=== PATIENT | female | born 1985 | race Caucasian/White ===

== ENCOUNTER 2020-02-20 13:50 | Outpatient (CLI) | payer OTHER, SELFPAY ==
--- NOTE | ~2020-02-20 | US_ITS ---
EXAMINATION: US thyroid DATE: 02/20/2020 14:36 INDICATION: Thyroid nodule. TECHNIQUE: Multiple ultrasound images of the thyroid were obtained. COMPARISON: Thyroid scintigraphy 10/03/2018 FINDINGS: The right thyroid lobe measures 4.2 x 1.3 x 1.6 cm. The left thyroid lobe measures 3.4 x 1.4 x 1.2 c m. In the right thyroid lobe, there is an 8 mm solid, hypoechoic, [id number] nodule with nubia h margin with punctate echogenic foci (TI-RADS TR5). There is a 3 mm nodule in right thyroid lobe. IMPRESSION: 1. Small thyroid nodules. Thyroid ultrasound is recommended in one year. Reviewed, dictated and finalized at location B.
== END 2020-02-20 13:51 | disposition home or self-care (01) ==
LOC: ANHIMG 13:59
PROVIDERS: PCP Family Medicine; Visit Provider Advanced Practice Midwife
DX: E04.1 Nontoxic single thyroid nodule (principal)
CPT/HCPCS: 76536

== ENCOUNTER 2020-06-12 06:09 | Emergency (ER) | payer OTHER, SELFPAY ==
[2020-06-12] VITALS (15 sets, daily range): BP systolic 91–118; BP diastolic 55–79; PULSE 56–90; RESP 10–27; TEMP 36.5; O2SAT 98–100
--- NOTE | ~2020-06-12 | CT_ITS ---
EXAMINATION: CT abdomen pelvis w con EXAM DATE: 06/12/2020 07:52 INDICATION: Diffuse abdominal pain. TECHNIQUE: Spiral CT of the abdomen and pelvis was performed following intravenous injection of 100 m L Omnipaque 350. Axial, coronal and sagittal images were reviewed. The dose-length product (DLP) fo r this examination was 167.87 mGy-cm. The exposure was tailored according to patient size (auto mA e xposure control), and iterative reconstruction (ASIR) was used as additional dose reduction technique . Comparison is made to prior examination from 10/16/2013. FINDINGS: The left hemicolon is collapsed with prominent appearing wall, possible colitis. The liver , spleen, adrenal glands and pancreas are unremarkable. Gallbladder is unremarkable. No biliary obs truction. Portal and splenic veins are patent. Kidneys enhance symmetrically. There is no hydronep hrosis. The uterus is not identified and has likely been surgically resected. The bladder is unre markable. There is no retroperitoneal or pelvic lymphadenopathy. The appendix is normal. The stomach and small bowel are unremarkable. No free intraperitoneal ga s. The heart is normal in size. There are no pericardial or pleural effusions. The lung bases are unremarkable. The bones are unremarkable. IMPRESSION: 1. Possible left hemicolonic colitis. Reviewed, dictated and finalized at location A. ER SHUCKER
[2020-06-12 06:44] LABS: Basophils Percent Auto 0.4 % (0.2-1.2); Eosinophils Absolute Auto 0.2 K/mm3 (0-0.3); Eosinophils Percent Auto 1.7 % (0-4.4); Hematocrit 42.7 % (37.0-47.0); Hemoglobin 14.2 g/dL (12.0-15.0); Immature Granulocyte Absolute 0.02 K/mm3 (0.00-0.031); Immature Granulocyte Percent A 0.2 % (0-0.5); Lymphocytes Absolute Auto 2.12 K/mm3 (0.9-3.2); Lymphocytes Percent Auto 21.1 % (18.3-44.2); Mean Corpuscular HGB Conc 33.3 g/dl (32-36); Mean Corpuscular Hemoglobin 31.3 pg (26-34); Mean Corpuscular Volume 94.3 fl (80-100); Mean Platelet Volume 10.7 fl (7.4-10.4); Monocytes Absolute Auto 0.7 K/mm3 (0.1-0.6); Monocytes Percent Auto 6.7 % (2.6-8.5); Neutrophils Absolute Auto 7.1 K/mm3 (1.3-6.7); Neutrophils Percent Auto 69.9 % (45.5-73.1); Platelet Count Result 242 k/mm3 (150-375); Red Blood Count 4.53 M/mm3 (4.2-5.4); Red Cell Distribution Width 12.3 % (11.5-14.5); White Blood Count 10.1 K/mm3 (4.5-10.0)
[2020-06-12] MEDS: ONDANSETRON INJ 4 MG/2 ML VIAL IV PUSH (06:44)
[2020-06-12 06:57] LABS: Alanine Aminotransferase 19 U/L (4-35); Albumin Level 4.8 g/dL (3.5-5.1); Alkaline Phosphatase 74 U/L (38-126); Anion Gap 10 mmol/L (8-16); Aspartate Amino Transferase 29 U/L (14-36); Bilirubin,Total 0.9 mg/dL (0.2-1.3); Blood Urea Nitrogen 13 mg/dL (7-17); Carbon Dioxide 27 mmol/L (22-30); Chloride 103 mmol/L (98-107); Estimated CRCL calculation 59 ml/min; Estimated Glomerular Filt Rate > 60; Glucose 92 mg/dL (65-105); Potassium 3.9 mmol/L (3.4-5.0); Sodium 140 mmol/L (137-145)
[2020-06-12] MEDS: SODIUM CHLORIDE 0.9% IV 1,000 ML 999 ML IV CONT (06:59)
[2020-06-12] MEDS: MORPHINE SULFATE (*CRX) 2 MG/ML INJ IV PUSH (07:35)
--- NOTE | 2020-06-12 07:44 | ED.GENADULT ---
HPI - General Adult General Chief complaint: Abdominal Pain Stated complaint: Pooping Blood Time Seen by Provider: 06/12/20 06:59 History of Present Illness HPI narrative: Patient is a 34-year-old female who presents ER with abdominal cramping and diarrhea. Symptoms began last night. She has had frequent loose stools in the last few hours. Prior to arriving in the ER she had one stool that had some blood in it. It was mixed in with the stool. It did not change the color of the water in the toilet bowl. She continues to have cramping of the abdomen. No fevers or chills or sweats. 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 Originally thought she was having food poisoning. Related Data Home Medications Medication Instructions Recorded Confirmed cetirizine 10 mg tablet 10 mg PO DAILY 04/16/20 estradiol 2 mg tablet 2 mg PO DAILY 04/16/20 propranolol 10 mg tablet 10 mg PO Q12H 04/16/20 sumatriptan succinate 25 mg PO DAILY 06/12/20 06/12/20 Allergies Allergy/AdvReac Type Severity Reaction Status Date / Time Penicillins Allergy Unknown HIVES, N&V Verified 06/12/20 06:15 Review of Systems Review of Systems: All systems reviewed & are unremarkable except as noted in HPI and below Constitutional: Constitutional: Denies chills and Denies fever(s) ENT: Denies nasal congestion and Denies sore throat Respiratory: Respiratory: Denies cough and Denies dyspnea Gastrointestinal: Gastrointestinal: Reports abdominal pain, Reports diarrhea, Reports nausea and Denies vomiting PMFSH Social History Social History (Updated 04/16/20 @ 13:15 by Danelle Gavin) Smoking status: Current every day smoker Tobacco type: cigarettes Second hand tobacco smoke exposure: Yes Exam Narrative: Exam Narrative: GENERAL: Well-appearing, well-nourished, and in no acute distress. HEAD: Normocephalic, atraumatic. ENT: Mucous membranes moist. CHEST: Clear to auscultation. No respiratory distress. HEART: Regular rate and rhythm. Normal peripheral pulses. ABDOMEN: Soft, mild diffuse tenderness without guarding, nondistended. EXTREMITIES: Normal range of motion. No edema. NEURO: Alert and oriented x3. PSYCH: Normal mood and affect. Course Course Emergency Course: Patient informed of results. Will give work note and supportive therapy for home as well as Cipro/Flagyl. Vital Signs Vital signs: Vital Signs Temperature 97.7 F 06/12/20 06:12 Pulse Rate 86 06/12/20 06:12 Respiratory Rate 15 06/12/20 06:12 Blood Pressure 118/55 L 06/12/20 06:12 Pulse Oximetry 98 06/12/20 06:12 Temperature 97.7 F 06/12/20 06:12 Pulse Rate 76 06/12/20 08:25 Respiratory Rate 11 L 06/12/20 08:25 Blood Pressure 106/73 06/12/20 08:25 Pulse Oximetry 100 06/12/20 08:25 Medical Decision Making Vital Signs Vital Signs: Vital Signs Temperature 97.7 F 06/12/20 06:12 Pulse Rate 86 06/12/20 06:12 Respiratory Rate 15 06/12/20 06:12 Blood Pressure 118/55 L 06/12/20 06:12 Pulse Oximetry 98 06/12/20 06:12 Temperature 97.7 F 06/12/20 06:12 Pulse Rate 76 06/12/20 08:25 Respiratory Rate 11 L 06/12/20 08:25 Blood Pressure 106/73 06/12/20 08:25 Pulse Oximetry 100 06/12/20 08:25 Lab Data Result diagrams: 06/12/20 06:34 06/12/20 06:34 Labs: Lab Results 06/12/20 06/12/20 06/12/20 Range/Units 06:34 06:34 06:34 WBC 10.1 H (4.5-10.0) K/mm3 RBC 4.53 (4.2-5.4) M/mm3 Hgb 14.2 (12.0-15.0) g/dL Hct 42.7 (37.0-47.0) % MCV 94.3 (80-100) fl MCH 31.3 (26-34) pg MCHC 33.3 (32-36) g/dl RDW 12.3 (11.5-14.5) % Plt Count 242 (150-375) k/mm3 MPV 10.7 H (7.4-10.4) fl Immature Gran % (Auto) 0.2 (0-0.5) % Neut % (Auto) 69.9 (45.5-73.1) % Lymph % (Auto) 21.1 (18.3-44.2) % Jerome % (Auto) 6.7 (2.6-8.5) % Eos % (Auto) 1.7 (0-4.4) % Baso %
[2020-06-12 07:45] LABS: Add Urine Microscopic? NO; Appearance Urine Clear (Clear); Bacteria Urine Trace /hpf; Bilirubin Urine Negative (Negative); Blood Urine Negative (Negative); Color Urine Straw (Yellow); Glucose Urine UA Negative (Negative); Ketones Urine Negative (Negative); Leukocyte Esterase Ur Negative LEU/UL (Negative); Mucus Urine Rare /lpf; Nitrate Urine Negative (Negative); Protein Urine Negative (Negative); RBC Urine 0-2 /hpf (0-2); Specific Grav Ur 1.011 (1.001-1.035); Squamous Epithelial Cell Urine Occasional /hpf (Few); Urobilinogen Urine Negative mg/dL (<2.0); WBC Urine 0-3 /hpf
[2020-06-12 08:09] LABS: Lipase 75 U/L (23-300)
== END 2020-06-12 10:40 | disposition home or self-care (01) ==
PROVIDERS: Emergency Medicine; Emergency Provider Emergency Medicine; PCP Family Medicine
DX: K52.9 Noninfective gastroenteritis and colitis, unspecified (principal); F17.210 Nicotine dependence, cigarettes, uncomplicated
CPT/HCPCS: 36415; 74177; 80053; 81003; 83690; 85025; 96361; 96374; 96375; 99284; J2270; J2405; J7030; Q9967

== ENCOUNTER 2020-06-17 12:43 | Outpatient (CLI) | payer OTHER, SELFPAY ==
--- NOTE | ~2020-06-17 | CT_ITS ---
EXAMINATION: CT brain wo con DATE: 06/17/2020 13:15 INDICATION: Migraine headache. TECHNIQUE: Computed tomography (CT) of the head was performed without intravenous contrast. The mA wa s adjusted according to patient size. Iterative reconstruction technique was employed. The dose-lengt h product was 605.33 mGy-cm. COMPARISON: None FINDINGS: There is no intracranial hemorrhage, acute infarction, or abnormal intracranial mass lesion . The ventricles are normal in size. The orbits are normal. The paranasal sinuses are clear. The mast oid air cells are normal. IMPRESSION: 1. Normal brain. Reviewed, dictated and finalized at location B. CASER IMPRESSION: 1. Normal brain.
== END 2020-06-17 12:44 | disposition home or self-care (01) ==
PROVIDERS: PCP Family Medicine; Visit Provider Nurse Practitioner
DX: G43.909 Migraine, unspecified, not intractable, without status migrainosus (principal)
CPT/HCPCS: 70450

== ENCOUNTER 2021-05-04 09:36 | Outpatient (CLI) | payer OTHER, SELFPAY ==
--- NOTE | ~2021-05-04 | NM_ITS ---
EXAMINATION: NM thyroid scan w uptake DATE: 05/05/2021 11:19 INDICATION: Thyrotoxicosis, unspecified without thyrotoxic crisis. COMPARISON: Thyroid scintigraphy 10/03/2018, thyroid ultrasound 02/20/2020 TECHNIQUE: 0.450 mCi I-123 was administered orally. Scintigraphic images of the thyroid gland were o btained at 24 hours. Thyroid uptake was calculated by the technologist. FINDINGS: The thyroid uptake is 23% (normal 10-30%), with the right lobe measuring 13% uptake and the left 10%. There is no focal area of decreased or increased activity to suggest hypofunctioning or hyperfunctio jo nodule. IMPRESSION: 1. Normal thyroid scintigraphy and 24-hour iodine uptake. Reviewed, dictated and finalized at location A.
== END 2021-05-04 09:37 | disposition home or self-care (01) ==
LOC: ANHIMG 09:40
PROVIDERS: PCP Family Medicine; Visit Provider Internal Medicine Endocrinology, Diabetes & Metabolism
DX: E05.90 Thyrotoxicosis, unspecified without thyrotoxic crisis or storm (principal)
CPT/HCPCS: 78014; A9516

== ENCOUNTER 2022-03-17 16:47 | Outpatient (CLI) | payer BC, MEDICAID, SELFPAY ==
--- NOTE | ~2022-03-17 | US_ITS ---
EXAMINATION: US thyroid DATE: 03/17/2022 17:27 INDICATION: Nontoxic single thyroid nodule. TECHNIQUE: Multiple ultrasound images of the thyroid were obtained. COMPARISON: Ultrasound 02/20/2020 FINDINGS: The right thyroid lobe measures 4.2 x 1.6 x 1.7 cm. The left thyroid lobe measures 3.5 x 1.5 x 1.2 c m. In the right thyroid lobe, there is a 9 mm solid, hypoechoic, wider than tall nodule with smooth margin and punctate echogenic focus (TI-RADS TR5). IMPRESSION: 1. Stable small thyroid nodule. Thyroid ultrasound is recommended in one year. Reviewed, dictated and finalized at location A.
== END 2022-03-17 16:48 | disposition home or self-care (01) ==
PROVIDERS: PCP Family Medicine; Visit Provider Nurse Practitioner Adult Health
DX: E05.90 Thyrotoxicosis, unspecified without thyrotoxic crisis or storm (principal); E04.1 Nontoxic single thyroid nodule
CPT/HCPCS: 76536

== ENCOUNTER 2022-09-08 08:03 | Outpatient (CLI) | payer BC, MEDICAID, SELFPAY ==
--- NOTE | ~2022-09-08 | XR_ITS ---
Right Knee Technique: AP, lateral, and oblique views were obtained. Clinical History: Pain Findings: No fracture or dislocation is seen. Osseous alignment is anatomic. Joint spaces are preserv ed without degenerative or erosive change. Soft tissues are unremarkable. No joint effusion is seen. Impression: Unremarkable right knee radiographs. Reviewed, dictated and finalized at [facility]. ER MACHINE OPERATOR Impression: Unremarkable right knee radiographs.
== END 2022-09-08 08:04 | disposition home or self-care (01) ==
PROVIDERS: PCP Family Medicine; Visit Provider Nurse Practitioner Adult Health
DX: M25.561 Pain in right knee (principal); M25.461 Effusion, right knee
CPT/HCPCS: 73564

== ENCOUNTER 2024-03-02 00:08 | Day surgery (SDC) | payer BC, MEDICAID, SELFPAY ==
[2024-02-13 15:49] VITALS: BMI 53.6
[2024-03-02 10:39] VITALS: BP 116/80; PULSE 82; RESP 16; TEMP 36.4; O2SAT 100; BMI 23.2
[2024-03-02] MEDS: LACTATED RINGERS 1,000 ML 150 ML IV CONT (10:53)
--- NOTE | 2024-03-02 11:04 | WPDANESEPPF ---
Anes - Initial Pre Proc Eval Procedure: Operation Date: 03/02/24 11:30 Proposed Procedures p Esophagogastroduodenoscopy & Colonoscopy - Adria Fulton MD Date/Time: 03/02/24 11:04 Surgeon: Adria Fulton MD Pre Op Diagnosis: Noninfective gastroenteritis and colitis unspecifi Patient Data Age: 38 Gender: F Height: 1.57 m Weight: 57.7 kg Last Vital Signs Temp 97.6 F 03/02/24 10:39 Pulse 82 03/02/24 10:39 Resp 16 03/02/24 10:39 BP 116/80 03/02/24 10:39 Pulse Ox 100 03/02/24 10:39 O2 Del Method Room Air 03/02/24 10:39 Allergies Allergy/AdvReac Type Severity Reaction Status Date / Time Penicillins Allergy Unknown HIVES, N&V Verified 03/02/24 10:45 doxycycline Allergy Unconscious Verified 03/02/24 10:45 Home Medications Medication Instructions Recorded Confirmed Type cetirizine 10 mg tablet (Zyrtec) 10 mg PO DAILY 04/16/20 03/02/24 History Patient hx anesthesia problems: none Family hx anesthesia problems: none Results Review: All pre-operative results and documents have been reviewed as part of the pre-operative evaluation. [facility] Past Medical History Medical History Anxiety Headache, migraine Hepatitis A Thyroid Nodule Family History Family History (Updated 04/08/21 @ 15:06 by Maxine Garcia) Other Depression Social History Social History Smoking packs per day: 1 Smoking cigarettes per day: 20.0 Years smoked: 25 Smoking pack-years: 25.00 Smoking status: Current every day smoker Tobacco type: cigarettes and e-cigarettes/vaping Second hand tobacco smoke exposure: Yes Additional smoking assessment comments: smokes e-cigarettes now, started in 2021. Smoked a pack a day before for 25 Alcohol intake: never Substance use: current Substance use type: marijuana and methamphetamine Other substance usage details: current marijuana, former meth user (quit 10 years ago) Last use: 02/13/2024 Living arrangements: with family Spiritual care concerns: No Anes - Eval Final PreProcedure Day of Procedure 03/02/24 11:04 Patient weight: normal Heart: regular rate and rhythm Lungs: clear to auscultation Airway: Mallampati scale and special considerations (Missing teeth on the top aspect. ) Neurological: alert and oriented Last oral intake: >/= 8 hours ASA classification: II Emergent: no Anesthetic plan: proceed Anesthesia type and monitoring: general GIVS and standard monitoring Results Review: All pre-operative results and documents have been reviewed as part of the pre-operative evaluation. Palpitations/anxiety, Ex smoker quit 2020, currently vapes daily this am at approx 9 am. Informed Consent: The patient's anesthetic plan and its attendant risks and benefits were discussed with the patient/family/POA. Questions were solicited and answers provided to the satisfaction of the patient/family/POA.
--- NOTE | 2024-03-02 11:07 | PM.HPGS ---
History of Present Illness History of Present Illness Consent: Risks, benefits, and alternatives have been discussed and questions answered. Patient agrees to proceed with procedure. Chief complaint: Noninfective gastroenteritis and colitis unspecifi Narrative: Lina Bear is a 38 year old female here for egd and colonoscopy, last time about 8 years ago. She has intermittent loose stools, abdomina cramping and nausea, she was told that had colitis , also noted oily stools Review of Systems Review of Systems: All systems reviewed & are unremarkable except as noted in HPI and below PMFSH Past Medical History Medical History (Updated 03/02/24 @ 11:08 by Adria Fulton MD) Anxiety Headache, migraine Hepatitis A Loose stools Nausea Thyroid Nodule Family History Family History (Updated 04/08/21 @ 15:06 by Maxine Garcia) Other Depression Social History Social History Smoking packs per day: 1 Smoking cigarettes per day: 20.0 Years smoked: 25 Smoking pack-years: 25.00 Smoking status: Current every day smoker Tobacco type: cigarettes and e-cigarettes/vaping Second hand tobacco smoke exposure: Yes Additional smoking assessment comments: smokes e-cigarettes now, started in 2021. Smoked a pack a day before for 25 Alcohol intake: never Substance use: current Substance use type: marijuana and methamphetamine Other substance usage details: current marijuana, former meth user (quit 10 years ago) Last use: 02/13/2024 Living arrangements: with family Spiritual care concerns: No Meds Home Medications and Allergies Home Medications Medication Instructions Recorded Confirmed Type cetirizine 10 mg tablet (Zyrtec) 10 mg PO DAILY 04/16/20 03/02/24 History Allergies Allergy/AdvReac Type Severity Reaction Status Date / Time Penicillins Allergy Unknown HIVES, N&V Verified 03/02/24 10:45 doxycycline Allergy Unconscious Verified 03/02/24 10:45 Vital Signs Vital Signs - 24 hr 03/02/24 10:39 Temperature 97.6 F Pulse Rate 82 Respiratory Rate 16 Blood Pressure 116/80 Pulse Oximetry 100 Oxygen Delivery Room Air Exam Const: General: comfortable and no acute distress HENMT: Face/Nose/Sinus: Normal nares present Eyes: General: appearance normal, both eyes and all related structures Neck: Neck: no JVD Resp: Auscultation: clear to auscultation bilaterally Cardio: Rate: regular rate Rhythm: regular rhythm GI: Inspection: non-distended GI Palp: Yes Soft to palpation Skin: General skin exam: normal color Neuro: General: gait normal Speech: normal speech Extrem: General: normal to inspection Psych: Mental Status: mental status grossly normal Assessment and Plan Assessment and plan (1) Loose stools: Code(s): R19.5 - Other fecal abnormalities Status: Acute Assessment and Plan: colonoscopy get also stool pancreatic elastase (2) Nausea: Code(s): R11.0 - Nausea Status: Acute Assessment and Plan: egd
[2024-03-02] MEDS: BENZOCAINE (*SP) 60 ML SPRAY CAN (HURRICAINE) 1 SPRAY MUCOUS MEM (11:10)
--- NOTE | 2024-03-02 11:21 | SUR.OPER ---
EGD end time: 1115, Colonoscopy start time: 1121
[2024-03-02 11:31] VITALS: BP 94/58; PULSE 80; RESP 22; O2SAT 94
[2024-03-02 11:41] VITALS: BP 110/60; PULSE 76; RESP 20; O2SAT 96
[2024-03-02 11:51] VITALS: BP 115/68; PULSE 73; RESP 21; O2SAT 100
== END 2024-03-02 12:04 | disposition home or self-care (01) ==
PROVIDERS: PCP Family Medicine; Visit Provider Internal Medicine Gastroenterology
PROC: 0DJ08ZZ Inspection of Upper Intestinal Tract, Via Natural or Artificial Opening Endoscopic (ICD-10-PCS; CPT 43235; principal; 2024-03-02 11:30)
DX: K52.9 Noninfective gastroenteritis and colitis, unspecified (principal); R19.5 Other fecal abnormalities; F41.9 Anxiety disorder, unspecified; F17.210 Nicotine dependence, cigarettes, uncomplicated; F12.90 Cannabis use, unspecified, uncomplicated
CPT/HCPCS: 43239; 45380; 88305; J2704; J7120

== ENCOUNTER 2024-06-06 08:50 | Outpatient (CLI) | payer BC, MEDICAID, SELFPAY ==
[2024-06-12 14:08] LABS: Pancreatic Elastase, Stool 740 mcg/g (>200)
== END 2024-06-06 08:51 | disposition home or self-care (01) ==
LOC: ANHLAB 08:52
PROVIDERS: PCP Family Medicine; Visit Provider Internal Medicine Gastroenterology
DX: R19.7 Diarrhea, unspecified (principal)
CPT/HCPCS: 82653

== ENCOUNTER 2024-06-11 06:39 | Outpatient (CLI) | payer BC, MEDICAID, SELFPAY ==
[2024-06-11 08:06] LABS: Cholesterol 242 mg/dL (0-200); HDL Direct 56 mg/dL; Triglycerides 87 mg/dL (<150)
[2024-06-11 08:17] LABS: LDL Cholesterol Direct 132 mg/dL
== END 2024-06-11 06:40 | disposition home or self-care (01) ==
PROVIDERS: PCP Family Medicine; Visit Provider Registered Nurse
DX: E78.5 Hyperlipidemia, unspecified (principal)
CPT/HCPCS: 36415; 80061